=== PATIENT | male | born 1995 | race African-American/Black ===

== ENCOUNTER 2025-01-09 14:08 | Outpatient (CLI) | payer SELFPAY | END 2025-01-09 14:09 | disposition home or self-care (01) | PROVIDERS: Visit Provider Family Medicine | DX: S19.9XXA Unspecified injury of neck, initial encounter (principal); V49.69XA Unspecified car occupant injured in collision with other motor vehicles in traffic accident, initial encounter; Y92.410 Unspecified street and highway as the place of occurrence of the external cause | CPT/HCPCS: A0425; A0433 ==

== ENCOUNTER 2025-01-09 14:47 | Emergency (ER) | payer SELFPAY ==
--- OUTSIDE RECORDS SUMMARY | 2024-12-16 13:00 | XMS_ITS | Encounter Summary ---
Author Organization [facility] Address [address] [place] [address] Care Team Providers Care Kiln Loader Name Role Phone System, Provider Not In Primary Care Provider Un available Corine Renee MD Unavailable Reason for Visit * Reason Comments Headache Intractable episodic cluster headacheReferred by Carlin Mcdonnell MD * Consultation (Routine) - Pending Review Specialty Diagnoses / Procedures Referred By Contulises t Referred To Contact Neurology Diagnoses Intractable episodic cluster headache Carlin Mcdonnell MD [address] [address] Phone: tel: fax: Referral ID Status Reason Start Date Expiration Date V isits Requested Visits Authorized [id number] Pending Review 09/08/2024 09/08/2025 1 1 Encounter Details Date Type Department Care Team ([facility] st Contact Info) Description 12/16/2024 1:00 PM CDT Office Visit [facility] [address], [address] [place] [address] Carlin Mcdonnell MD [address] [id number] Corine Renee MD [address] [place] [id number] Migraine without aura and without status migrainosus, not intractable (Primary Dx); Intractable episodic cluster headache Social History Tobacco Use Types Packs/Day Years Used Date Smoking Tobacco: Never Smokeless Tobacco: Never Tobacco Cessation:Counseling Given: Not Answered Alcohol Use Standard Drinks/Week Comments Yes 0 (1 standard drink = 0.6 oz pur e alcohol) sometimes - PHQ-2 Answer Date Recorded PHQ-2 Score 4 12/16/2024 Sex and Gender Information Value Date Recorded Sex Assigned at Not on file Legal Sex Male 11:37 AM CDT Gender Identity Not on file Sexual Orientation Not on file documented as of this encounter Last Filed Vital Signs Vital Sign Reading Time Taken Comments Blood Pressure 124/80 12/16/2024 12:51 PM CDT Pulse 83 12/16/2024 12:51 PM CDT Temperature - - Respiratory Rate - - Oxygen Saturation 99% 12/16/2024 12:51 PM CDT Inhaled Oxygen Concentration - - Weight 67.6 kg (149 lb) 12/16/2024 12:51 PM CDT Height 172.7 cm (5' 8) 12/16/2024 12:51 PM CDT Body Mass Index 22.66 12/16/2024 12:51 PM CDT documented in this encounter Progress Notes * Corine Renee MD - 12/16/2024 1:[address] 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 Recommended that we initiate treatment on the following schedule. Headache treatment plan: Acute medication recommendations: Continue sumatriptan intranasal 20 mg - may repeat at second dose 2 hours after the initial dose. Limit to no more than 9 days per month of use Preventative medication recommendations: Starting January 18, start verapamil 40mg twice daily, for 7 days, then increase to 120mg for 7 days, then 240mg daily and stay at this dose Ending April 20 Would recommend that he taper off starting Apr 20 by decreasing to 120mg for 7 days, then 40mg twice daily for 7 days and 40mg daily for 7 days Discussed side effects Will see him in return in 4 months Could consider occipital and supraorbital blocks on the left at the time of the episodes and see ifhe obtains benefit from this Total time spent today was 60 minutes in chart review, history, exam and counseling. Corine Renee MD Neurology Chief Complaint: Chief Complaint Patient presents with Headache Intractable episodic cluster headache Referred by Carlin Mcdonnell MD History is obtained from the patient and medical record. Anup Henriquez is a 29 year old male with a PMHx significant for cluster headaches going back frombefore 2011. He was originally worked up and treated for allergies and was taking Zyrtec for it. The pain is localized to his right unilateral, yazdanism and occipital area. He reports it sending out sharp, and at onset throbbing pain throughout the occipital and temporal region that extends to right eye. He endorses blurry vision, photophobia, phonophobia, nausea and potentially vomiting from the pain. He reports localized sharp, pulsating pain that feels like someone is taking a knife and scraping it across his right head. Historically, it jumped from once a year to twice a year around 2011 and is still at present twice a year. The episodes will last about 2-3 weeks. He will awaken at 9am and will start 60 minutes upon awakening. He will place a hot towel treatment, lasting 2-3 weeks, 8-9 hours of continuous pain per day. He endorses the pain being present in the spring and the fall and gets two episodes a year that last two weeks each. He suspects stress and sleep are common causes of his pain. On board. Once the pain starts he has about 40 minutes to either use the PO medication or the nasal spray for it to work. With the medications, he reports it helping after about 30 minutes. He endorses turning off the lights and laying down as helping him when the headaches come on. He is interested in botox injections for his headaches. He reports the last MRI was done in 2016 or 2017 for his headaches. Past Medical History: Open angle glaucoma bilateral, borderline Concussion February 2022 Past Surgical History: None Social History: Social History Socioeconomic History Marital status: Single Spouse name: Not on file Number of children: Not on file Years of education: Not on file Highest education level: Not on file Occupational History Not on file Tobacco Use Smoking status: Never Smokeless tobacco: Never Substance and Sexual Activity Alcohol use: Yes Comment: sometimes - Drug use: Never Sexual activity: Not on file Other Topics Concern Not on file Social History Narrative Not on file Social Drivers of Health Financial Resource Strain: Low Risk (08/27/2024) Received from [facility] Financial Resource Strain Difficulty of Paying Living Expenses: 3 Difficulty of Paying Living Expenses: Not on file Food Insecurity: No Food Insecurity (10/15/2024) Received from [facility] Food Insecurity Do you worry your food will run out before you are able to buy more?: 1 Transportation Needs: Unmet Transportation Needs (10/15/2024) [facility] Needs Does lack of transportation keep you from medical appointments?: 2 Does lack of transportation keep you from work, meetings or getting things that you need?: 2 Physical Activity: Not on file Stress: Not on file Social Connections: Socially Integrated (10/15/2024) Received from [facility] Social Connections Do you often feel lonely or isolated from those around you?: 0 Interpersonal Safety: Not on file Housing Stability: Low Risk (10/15/2024) Received from [facility] Housing Stability What is your housing situation today?: 1 Family History: 2 siblings with headaches, from a life threatening injury in one case, other possibly hereditary Allergies: No Known Allergies Medications: Acute headache medications: Tylenol and Ibuprofen Sumatriptan 100 mg tablet - starts with this Sumatriptan 20 mg/ACT nasal spray - only if acutely needed Preventative headache medications: venlafaxine (EFFEXOR) 75 MG tablet, Take one tab 4 days a week, two tabs 3 days a week., Disp: , Rfl: - for anxiety or depression, no difference for headaches Current Outpatient Medications: OTHER MEDICAL SUPPLIES, Oxygen - delivery, Disp: , Rfl: Physical Exam: BP 124/80 Pulse 83 Ht 1.727 m (5' 8) Wt 67.6 kg (149 lb) SpO2 99% BMI 22.66 kg/m?? Physical Exam: Neurologic: Mental Status Exam: Alert, awake and oriented to situation. No dysarthria. Speech of normal fluency. Cranial Nerves: Fundoscopic exam with clear disc margins bilaterally. PERRLA, EOMs intact, no nystagmus, facial movements symmetric, facial sensation intact to light touch, hearing intact to conversation, trapezius and SCMs 5/5 bilaterally, tongue midline and fully mobile. Motor: Normal tone in all four extremities, no atrophy. 5/5 strength bilaterally in shoulder abduction, elbow extensors and flexors, wrist extensors and flexors, hip flexors, knee extensors and flexors, dorsi- and plantarflexion. No tremors or abnormal movements noted. Sensory: Sensation intact to pinprick and vibration sensation on arms and legs bilaterally. Coordination: [id number]-[id number] intact bilaterally. Rapidly alternating movements intact bilaterally in the upper extremities. Normal finger tapping bilaterally. Intact heel-orozco bilaterally. Reflexes: 2+ and symmetric in triceps, biceps, brachioradialis, patellar, Achilles, and plantars downgoing bilaterally. Gait: Normal gait. Able to toe and heel walk. Tandem gait normal. Head: Normocephalic, atraumatic. Pain over the left occipital lesser and greater notches Eyes: No conjunctival injection, no scleral icterus. Data: None on file documented in this encounter Nursing Notes * Shama Davidson, [facility] - 12/16/2024 1:00 PM CDT Anup Henriquez is a 29 year old male who presents for: Chief Complaint Patient presents with Headache Intractable episodic cluster headache Referred by Carlin Mcdonnell MD MORRIS: 1-2 seasons out of the year/ episodic. 2-3 weeks each year Medications: sumatriptan nasal and pill, oxygen, OTCs dont do anything Symptoms: cluster MORRIS sensitivity to light and sound, depending on severity there is nausea, lack ofappetite, disorientation, aura and blurry vision. Initial Vitals: BP 124/80 Pulse 83 Ht 1.727 m (5' 8) Wt 67.6 kg (149 lb) SpO2 99% BMI 22.66 kg/m?? Estimated body mass index is 22.66 kg/m?? as calculated from the following: Height as of this encounter: 1.727 m (5' 8). Weight as of this encounter: 67.6 kg (149 lb).. Body surface area is 1.8 meters squared. BP completed using cuff size: regular Shama Davidson CMA documented in this encounter Plan of Treatment Upcoming Encounters Date Type Department Care Team (Late st Contact Info) Description 04/21/2025 1:00 PM AGRICULTURAL PRODUCE COMMISSION AGENT Office Visit [facility] Neurology [facility] - [address], [address] [place] [phone] Corine Renee MD [address] [place] [address] documented as of this encounter Visit Diagnoses Diagnosis Migraine without aura and without status migrainosus, not intractable- Primary Migraine without aura, without mention of intractable migraine without mention of status migrainosus Intractable episodic cluster headache Episodic cluster headache documented in this encounter Additional Health Concerns Assessment Noted Time PHQ-9 Depression Total Score: 16 025 12:45 PM CDT documented as of this encounter Care Teams Kiln Loader Relationship Specialty Start Date End Date System, Provider Not In PCP - General Clinic 09/12/24 Corine Renee MD [address] [place], [place] [phone] Physician Neurology 09/12/24 documented as of this encounter
[2025-01-09 14:49] VITALS: BP 110/78; PULSE 58; RESP 16; TEMP 36.9; O2SAT 100; BMI 21.4
--- OUTSIDE RECORDS SUMMARY | 2025-01-09 14:49 | XMS_ITS | Clinical Summary ---
Author Organization [facility] Address [address] [place] [address] Care Team Providers Care Online Trader Name Role Phone System, Provider Not In Primary Care Provider Un available Corine Renee MD Unavailable Allergies No known active allergies Medications SUMAtriptan (IMITREX) 100 MG tablet Take 100 mg by mouth. 10/17/19 24 Active venlafaxine (EFFEXOR) 75 MG tablet Take one tab 4 days a week, two tabs 3 days a week. 10/11/19 25 Active OTHER MEDICAL SUPPLIES Oxygen - delivery 09/06/19 25 Active SUMAtriptan (IMITREX) 20 MG/ACT nasal spray [place] 1 spray in nostril as needed for migraine. Active verapamil (CALAN) 40 MG tabletIndicatio ns:Migraine without aura and without status migrainosus, not intractable Take 1 tablet (40 mg) by mouth 2 times daily for 7 days. 14 tablet 12/17/19 25 Active verapamil ER (VERELAN) 120 MG 24 hr capsuleIndicati ons:Migraine without aura and without status migrainosus, not intractable Take 1 capsule (120 mg) by mouth at bedtime for 7 days, THEN 2 capsules (240 mg) at bedtime. 187 capsule 12/17/19 25 025 Active SUMAtriptan (IMITREX) 5 MG/ACT nasal spray [place] 20 mg in nostril. 10/17/19 24 025 Discontinued Encounters Date Type Department Care Team Description 12/16/2024 1:00 PM CDT Office Visit [facility] Neurology [facility] - [address], [address] [place] [address] Carlin Mcdonnell MD Montenegro, Monique M, MD Migraine without aura and without status migrainosus, not intractable (Primary Dx); Intractable episodic cluster headache 12/16/2024 Travel 12/15/2024 Telephone [facility] Neurology [facility] - [address], [address] [place] [address] Corine Renee MD 11/03/2024 Telephone [facility] Neurology [facility] - [address], [address] [place] [address] Corine Renee MD Appointment 10/20/2024 Telephone [facility] Neurology [facility] - [address], [place] [address] [place] [address] Corine Renee MD Appointment from Last 3 Months Social History Tobacco Use Types Packs/Day Years [...] on file Sexual Orientation Not on file Last Filed Vital Signs Vital Sign Reading [...] Mass Index 22.66 12/16/2024 12:51 PM CDT Plan of Treatment Upcoming Encounters Date Type Department Care Team (Late st Contact Info) Description 04/21/2025 1:00 PM WIRE WELDER Office Visit [facility] Neurology [facility] - [address], [facility] [address] [place] [address] Corine Renee MD [address] [place] [address] Health Maintenance Due Date Last Done Comments ADVANCE CARE PLANNING 1995 ANNUAL REVIEW OF HM ORDERS 1995 HPV VACCINE (3 - Male 3-dose series) 08/04/2011 04/17/2011, 02/03/2011 COVID-19 VACCINE ( - season) 2024 INFLUENZA VACCINE (#1) 2025 02/03/2011 YEARLY PREVENTIVE VISIT 09/05/2025 09/05/2024, 09/05 DTAP/TDAP/TD VACCINE (7 - Td or Tdap) 09/05/2034 09/05/2024, 09/27/2006, 01/11/1999, Additional history exists ZOSTER VACCINE (1 of 2) 2044 HEPATITIS B VACCINE Completed 09/27/2006, 01/08/2005, 06/27/1995, Additional history exists MENINGITIS VACCINE Aged Out 09/27/2006 No longer eligible based on patient's age to complete this topic HEPATITIS C SCREENING Completed 09/05/2024 HIV SCREENING Completed 09/05/2024 PHQ-2 (once per calendar year) Completed 12/16/2024, 12/16/2024 PNEUMOCOCCAL VACCINE: PEDIATRICS (0 to 5 YEARS) AND AT-RISK PATIENTS (6 to 49 YEARS) Aged Out No longer eligible based on patient's age to complete this topic Insurance [employer] [facility] Care Teams Online Trader Relationship Specialty Start Date End Date System, Provider Not In PCP - General Clinic 09/12/24 Corine Renee MD [address] [place] [address] Physician Neurology 09/12/24
--- OUTSIDE RECORDS SUMMARY | 2025-01-09 14:49 | XMS_ITS | Encounter Summary ---
Author Organization [facility] Address [address] [place] [address] Care Team Providers Care Ward Maid Name Role Phone System, Provider Not In Primary Care Provider Un available Corine Renee MD Unavailable [phone] Encounter Details Date Type Department Care Team (Late st Contact Info) Description 12/15/2024 Telephone [facility] Neurology [address], [address] [place] [phone] Corine Renee MD [address] [place] [phone] Social History Tobacco Use Types Packs/Day Years Used Date Smoking Tobacco: Never Assessed PHQ-2 Answer Date Recorded PHQ-2 Score 4 12/16/2024 Sex and Gender Information Value Date Recorded Sex Assigned at Not on file Legal Sex Male 11:37 AM CDT Gender Identity Not on file Sexual Orientation Not on file documented as of this encounter Miscellaneous Notes * Telephone Encounter - Josey Mak - 12/15/2024 11:57 AM CDT Attempted to reach patient to remind them about appointment scheduled with Corine Renee MD on 12/16/24 in our [place] clinic. A voicemail was left with a call back number if the patient has questions or would like to reschedule. documented in this encounter Plan of Treatment Upcoming Encounters Date Type Department Care Team (Late st Contact Info) Description 04/21/2025 1:00 PM DRAWER IN Office Visit [facility] Neurology [address], [address] [place] [phone] Corine Renee MD [address] [place] [address] documented as of this encounter Visit Diagnoses Not on filedocumented in this encounter Care Teams Ward Maid Relationship Specialty Start Date End Date System, Provider Not In PCP - General Clinic 09/12/24 Corine Renee MD [address] [place] [address] Physician Neurology 09/12/24 documented as of this encounter
--- OUTSIDE RECORDS SUMMARY | 2025-01-09 14:49 | XMS_ITS | Clinical Summary ---
Author Organization [facility] Address [address] [place] [address] Care Team Providers Care Pet Care Associate Name Role Phone Unavailable Primary Care Provider Unavailabl e Allergies Active Allergy Reactions Criticality Noted Date Comments No Known Drug Allergies 09/29/2008 Medications oxyCODONE, immediate release, (ROXICODONE) 5 mg oral tablet Take 1-2 tablets (5-10 mg) by mouth every 4 (four) hours as needed (pain). 6 tablet 7 Active SUMAtriptan succinate (IMITREX) 50 mg oral tabletIndication s:Cluster headache, not intractable, unspecified chronicity pattern Take 1 tablet (50 mg) by mouth as directed. Use one tab at onset of headache. May repeat x one in four hours if headache persists 12 tablet 1 7 Active predniSONE (DELTASONE) 20 mg oral tabletIndication s:Cluster headache, not intractable, unspecified chronicity pattern 3 tablets daily for 2 days, 2 tablets daily for 2 days,1 tablet daily for 2 days,1/2 tablet daily for 2 days 13 tablet 7 Active Active Problems Problem Noted Date Diagnosed Date Cluster headaches 10/24/2011 Screening for sickle-cell disease or trait- nega tive - 11 02/06/2011 Acne 02/03/2011 Malaria 99 - Hx of - Juliane 09/29/2008 Hypospadias 1995 Immunizations Immunization Administration Dates Next Due DTaP (Infanrix) 01/11/1999, 7,06/27/1995,04/01/19 95,02/08/1995 HIB 12/01/1996, 6,04/05/1995,02/08/19 95 HPV Quadrivalent 04/17/2011,02/03/2011 Hep A Pediatric 02/03/2011 Hep B Adult 09/27/2006, 5,06/27/1995,02/08/19 95,1994 Influenza (Fluzone 2010-12) 02/03/2011 Influenza split virus quadrivalent 02/03/2011 MMR 01/11/1999,12/01/1996 Meningococcal MCV4P 09/27/2006 Polio IPV 01/11/1999, 6,04/05/1995,02/08/19 95 Polio OPV 01/11/1999 Td adult absorbed PF (2 Lf) 09/27/2006 Varicella 09/27/2006,12/01/1996 Family History Medical History Relation Comments High Blood Pressure Maternal Aunt High Blood Pressure Maternal Grandfather High Blood Pressure Maternal Grandmother Relation Status Comments Maternal Aunt Maternal Grandfather Maternal Grandmother Social History Tobacco Use Types Packs/Day Years Used Date Smoking Tobacco: Never Smokeless Tobacco: Never Alcohol Use Standard Drinks/Week Comments Yes 1 (1 standard drink = 0.6 oz pur e alcohol) Sex and Gender Information Value Date Recorded Sex Assigned at Not on file Legal Sex Male 6:42 AM CDT Gender Identity Not on file Sexual Orientation Not on file Last Filed Vital Signs Vital Sign Reading Time Taken Comments Blood Pressure 120/70 02/14/2017 2:24 PM CDT Pulse 84 10/19/2008 1:17 PM CDT Temperature 36.1 C (97 F) 02/14/2017 2:24 PM CDT Respiratory Rate - - Oxygen Saturation - - Inhaled Oxygen Concentration - - Weight 71.2 kg (157 lb) 02/14/2017 2:24 PM CDT Height 170.2 cm (5' 7) 02/14/2017 2:24 PM CDT Body Mass Index 24.59 02/14/2017 2:24 PM CDT Plan of Treatment Health Maintenance Due Date Last Done Comments Hepatitis C Screening 1995 Anxiety Screening (PAOLA-2) 12/09/1995 Depression Assessment (PHQ-2) 12/09/1995 HPV Vaccine (3 - Male 3-dose series) 08/04/2011 04/17/2011, 02/03/2011 Adult Tetanus Booster 09/27/2016 09/27/2006 COVID-19 Vaccine (2023-2 5 season) 2024 Influenza Vaccine (#1) 2025 1, 02/03/2011 RSV Vaccines (1 - 1-dose 75+ series) 2069 Meningococcal B Vaccine Aged Out No l onger eligible based on patient's age to complete this topic Pneumococcal Vaccine Aged Out No long er eligible based on patient's age to complete this topic Insurance [employer]
--- OUTSIDE RECORDS SUMMARY | 2025-01-09 14:49 | XMS_ITS | Encounter Summary ---
Author Organization [facility] Address [address] [place] [address] Care Team Providers Care Nuclear Plant Instrument Technician Name Role Phone System, Provider Not In Primary Care Provider Un available Corine Renee MD Unavailable [phone] Encounter Details Date Type Department Care Team (Latest Contact Info) Description 12/16/2024 Travel Social History Tobacco Use Types Packs/Day Years Used Date Smoking Tobacco: Never Smokeless Tobacco: Never Alcohol Use Standard Drinks/Week Comments Yes 0 (1 standard drink = 0.6 oz pur e alcohol) sometimes - PHQ-2 Answer Date Recorded PHQ-2 Score 4 12/16/2024 Sex and Gender Information Value Date Recorded Sex Assigned at Not on file Legal Sex Male 11:37 AM CDT Gender Identity Not on file Sexual Orientation Not on file documented as of this encounter Plan of Treatment Upcoming Encounters Date Type Department Care Team (Late st Contact Info) Description 04/21/2025 1:00 PM ELECTRODYNAMICIST Office Visit [facility] Neurology [address], [address] [place] [phone] Corine Renee MD [address] [place] [address] documented as of this encounter Visit Diagnoses Not on filedocumented in this encounter Additional Health Concerns Assessment Noted Time PHQ-9 Depression Total Score: 16 025 12:45 PM CDT documented as of this encounter Care Teams Nuclear Plant Instrument Technician Relationship Specialty Start Date End Date System, Provider Not In PCP - General Clinic 09/12/24 Corine Renee MD [address] [place] [address] Physician Neurology 09/12/24 documented as of this encounter
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
== END 2025-01-09 16:44 | disposition home or self-care (01) ==
PROVIDERS: Emergency Provider Family Medicine
DX: S16.1XXA Strain of muscle, fascia and tendon at neck level, initial encounter (principal); M25.532 Pain in left wrist; V49.9XXA Car occupant (driver) (passenger) injured in unspecified traffic accident, initial encounter
CPT/HCPCS: 72125; 73110; 94761; 99283; 99284